=== PATIENT | female | born 1935 | race Caucasian/White ===

== ENCOUNTER 2017-12-19 15:51 | Inpatient (IN) | payer MEDICARE, OTHER ==
[~2017-12-19] VITALS: Ht 167.6 cm; Wt 50.8 kg
[~2017-12-19 15:51] MED LIST: LORA-447 PO; QUET25TA5 PO; RISP0.2518 PO; SERT50TA PO
[2017-12-19 19:00] VITALS: BP 143/65
--- NOTE | 2017-12-19 19:00 | NUR ---
ADMISSION Pt arrived to [facility] unit per [facility] style wheelchair with sister Ailyn Preston and her son and 2 nursing workers from [facility] who transported here her from [facility]. Patient awake alert unable to give information other than her name and Month she was born and year. Pt cooperative at this time. Sister of pt helped complete admission.
[2017-12-19] MEDS ORDERED: RISPERDAL ONE (19:32)
[2017-12-19] MEDS ORDERED: HALDOL PO PRN (20:00)
[2017-12-19] MEDS ORDERED: HALDOL IM PRN (20:00)
[2017-12-19] MEDS ORDERED: ATIVAN PO PRN (20:00)
[2017-12-19] MEDS ORDERED: ATIVAN IM PRN (20:00)
[2017-12-19] MEDS ORDERED: RISPERDAL PO SCH (21:00)
--- NOTE | 2017-12-19 21:43 | NUR ---
Medication pt refused medication after several attempts becomes aggressive when nurses attempt to assist her with ADL's or any care RN attempted also will cont to monitor pt's behavior
--- NOTE | 2017-12-19 23:49 | NUR ---
VSEE Patient seen by Dr Zazueta per VSEE. Pts family also spoke with DR Zazueta about pt and her admission criteria. Admission meds added by Dr Zazueta.
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
--- NOTE | 2017-12-20 05:41 | NUR ---
Admit information Patient from [facility] in [place], [place], Patients sister reports patients may come see patient and she feels that it will upset the patient. [facility] at [facility]. Patient [facility] from [facility] with her in room. Patients sleep pattern varies. She normally has a good appetite and needs meds crushed in her food or she hasnt been taking them. She is unable to stand alone and may need 2 person assist for transfer. Patient has been wheelchair bound since she broke her hip 6 to 7 months ago. Patient had fell about 6 weeks after leaving [facility] last time and broke her hip. Patient has laceration/Skin teat to left arm which has been [facility] striped by [facility]. no infection noted. Patient enjoys cheese crackers and Dr Buchanan . Information obtained from Patients sister. Patient unable to answer questions so patient sister gave information provided.
[2017-12-20] MEDS ORDERED: LORA10TA75 PO (06:14)
[2017-12-20] MEDS ORDERED: GUAI-59 PO (06:17)
[2017-12-20] MEDS ORDERED: ACET325T12 PO (06:18)
[2017-12-20] MEDS ORDERED: ACET-685 PO (06:20)
[2017-12-20 07:08] VITALS: BP 146/95
[2017-12-20] MEDS ORDERED: ZOLOFT ONE (07:48)
[2017-12-20] MEDS ORDERED: RISPERDAL ONE ×2 (07:48→17:45)
[2017-12-20] MEDS ORDERED: RISPERDAL PO SCH ×2 (08:30→09:00)
[2017-12-20] MEDS: ZOLOFT PO SCH (09:50)
--- NOTE | 2017-12-20 12:20 | PRM.PN ---
Mood: UP AND DOWN, VERY CONFUSED Sleep: SLEPT 5.25 HOURS LAST NIGHT Appetite: SHE ATE 50% OF HER BREAKFAST THIS MORNING, TOTAL ASSIST Suidical thoughts: NONE REPORTED Homicidal thoughts: NONE REPORTED Recent stressors: STRESS OF MENTAL ILLNESS AND CONFUSION Family support: SISTER Aggressive Behavior: SHE HAS HAD RECENT AGGRESSIVE BEHAVIOR Ability to Perform ADL'sc: NEEDS ASSISTANCE (2 PERSON ASSIST) Psychotic sympstoms: DELUSIONAL THINKING, ODD THINKING, HALLUCINATIONS Manic Symptoms: MOOD SWINGS Living situation: LIVES AT PRISON IN [place], [place] Illicit Drug usec: NONE REPORTED Alcoholo use: NONE REPORTED Tobacco use: NONE REPORTED Family,PT,Surgical,&Current HX: Anxity Symptoms: MODERATE ANXIETY LEVEL Anger/Irritablility: PROBLEMS WITH ANGER AND IRRITABILITY Muscle Strength & Tone: WNL Gait & Station: Ataxic Appearance: Well groomed/hygience, Casual attire, Normal weight, Appears age stated Attitude & Behaviour: Uncooperative, Poor eye contact, Psychomotor agitation Mood & Affect: Euthymic/appr/congruent, Iabile, Angry Orientation: Disoriented to person, Disoriented to place, Disoriented to time, Disoriented to situation Attention/Concentration: Poor attention, Poor concentration Speech: Impaired Judgement/Insight: Poor judgement, Poor insight Thought Process: Loose, Tangential Language: Citizen [place] Thought content/Abnormal/Psych: A/V Corea, Delusions Fund of Knowledge: Other Associations: GUIDO Memory (recent and remote): Recent memory repaired, Remote memory repaired Constitutional: None Neurological: Weakness Psychiatric: Depressed, Anxious, Psychosis [place] I: DELUSIONAL DISORDER, PSYCHOSIS, DEPRESSION, ANXIETY, DEMENTIA [place] II: DEFERRED [place] III: REFER TO PMH/MEDICAL CHART [place] IV: STRESS OF MENTAL ILLNESS [place] V: GAF=25 Assessment/Plan Assessment/Plan Assessment/Plan THE PATIENT WAS SEEN BY DR. SCHWAB VIA TELEMEDICINE EQUIPMENT (VSEE) ALONG WITH THE TREATMENT TEAM. THE PATIENT'S VITAL SIGNS WERE: DM=935/95, PULSE=82, RESP.= 20, O2 SAT WAS 92% ON RA, TEMP.=98.0. THE PATIENT SLEPT 5.25 HOURS LAST NIGHT. THE PATIENT HAS A NORMAL APPETITE. THE PATIENT WAS ADMITTED TO THE [facility] YESTERDAY FOR AGGRESSIVE BEHAVIOR AT THE PRISON IN [place]. SHE HAS A SISTER THAT IS SUPPORTIVE. THE PATIENT MUMBLES AND DOES NOT ANSWER QUESTIONS VERY WELL. SHE IS DISORIENTED TO PERSON, PLACE, TIME, AND SITUATION. THE PATIENT IS NOT ABLE TO STATE HER MOOD. THE PATIENT HAS ODD AND DELUSIONAL THINKING RELATED TO HER DEMENTIA. THE PATIENT HAS HAD AGGRESSIVE BEHAVIOR RECENTLY. THE PATIENT IS NOT OVER-SEDATED FROM HER MEDICATIONS. SHE HAS DONE WELL ON RISPERDAL IN THE PAST PER HER SISTER. THE PATIENT IS A FULL ASSIST ON HER ADLS. ASSESSMENT: DELUSIONAL DISORDER, PSYCHOSIS; MAJOR DEPRESSIVE DISORDER; GENERALIZED ANXIETY DISORDER; DEMENTIA WITH BEHAVIOR PROBLEMS PLAN: 1) CONTINUE [facility] [place] MANAGEMENT. 2) INCREASE RISPERDAL TO 1MG PO BID. CONTINUE OTHER MEDICATIONS AT CURRENT DOSES. STAFF AGREEABLE WITH THE PLAN. SUPPORTIVE THERAPY GIVEN. THE PATIENT IS NOT SUICIDAL OR HOMICIDAL. Problems: (1) Psychosis Status: Acute ICD Code: F29 - Unspecified psychosis not due to a substance or known physiological condition SNOMED: 63870885 (2) Delusional disorder Status: Acute ICD Code: F22 - Delusional disorders SNOMED: 69482712 (3) Dementia with behavioral disturbance Permanent Comment: Treat as per psych Last Edited By: Ramiro Juárez MD on Feb 21, 2017 20:07 Status: Acute ICD Code: F03.91 - Unspecified dementia with behavioral disturbance SNOMED: 6926319091250 Patient History: MAINE SCHWAB IV, MD Dec 20, 2017 12:20
--- NOTE | 2017-12-20 12:43 | NUR ---
LUNCH PT CAME OUT OF SEEING DR SCHWAB YELLING AND SCREAMING. WHEN ATTEMPT TO GIVE HER TRAY TO HER SHE CONTINUE TO YELL AND SCREAM AT STAFF. STAFF SAT AT TABLE WITH OTHER PTS AND THIS PT. FEEDING THE OTHER PTS. WHILE AT THE TABLE PT KEPT YELLING-STAFF DID NOT TALK TO PT DUE TO HER YELLING IF SPOKE TO. PT DID CLAM DOWN AND LOOKED AT PEER NEXT TO HER AND APOLOGIZE. PT JUST SAT AT TABLE. Addendum: 12/20/17 at 1319 by Bette English LVN - GP TURRET LATHE SET UP OPERATOR Amended: Links added.
--- NOTE | 2017-12-20 13:20 | NUR ---
LUNCH CAME BACK TO PT AFTER SHE CALMED DOWN AND WAS SITTING QUIETLY ASKED IF SHE WAS HUNGRY. HER ANSWER MADE NO SENSE. PT ATE 50% ASSISTED BY THIS STAFF MEMBER. PT ATE WITHOUT ANY DIFFICULTY. DID SAY WHEN SHE WAS FULL.
--- NOTE | 2017-12-20 14:00 | NUR ---
GMAS: 0 PT UNABLE TO COGNITIVELY PARTICIPATE IN ASSESSMENT. PT INVOLUNTARY. PT CURRENTLY YELLING OUT. Addendum: 12/21/17 at 0842 by Hanna Knight, DISHA, BILLING COORDINATOR SW Amended: Links added.
--- NOTE | 2017-12-20 14:00 | NUR ---
MMSE: 030 PT UNABLE TO COGNITIVELY PARTICIPATE IN ASSESSMENT. PT INVOLUNTARY AND AGITATED. Addendum: 12/21/17 at 0844 by Hanna Knight, DISHA, AUTO MECHANICS TEACHER SW Amended: Links added.
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
--- NOTE | 2017-12-20 16:20 | NUR ---
PIRP: P: DTO, DEMENTIA WITH BEHAVIOR DISTURBANCE, FALL RISK. I: Provide medications as ordered by physician, Encourage attendance and participation of all groups, Provide groups that require focus and concentration. Provide 1:1 for allowing patient to voice feelings and concerns. Provide nonskid socks and assist patient with transfers and place bed alarm on patients bed. R: Patient has taken all medications but requires them to be crushed. Patient has been present for groups but has limited participation in groups d/t patient unable to express needs / feelings d/t word salad. She has raised her voice at staff as if getting upset but has not been able to make needs known. Patient is wearing nonskid socks, bed alarm placed and staff is assiting with transfers and toileting. P: Continue with current plan of care. Patient was seen by Dr. Zazueta today.
[2017-12-20 19:22] VITALS: BP 150/77
[2017-12-20] MEDS: RISPERDAL PO SCH (20:15)
[2017-12-21] MEDS ORDERED: TYLENOL PO PRN (00:30)
[2017-12-21] MEDS: ROBITUSSIN PO SCH ×6 (04:00→20:25)
--- NOTE | 2017-12-21 04:08 | NUR ---
PIRP P Behavioral Health Danger to Others, Dementia with Behavioral disturbance, High fall risk I Patient to be encourage to sleep at least 7 hours. Medication compliance to be enforced to help patient get to baseline so she can return to nursing facility. Threatening behavior to be stopped immediately for safety of other patients. Observations of Patient every 15 minutes to promote safety of patient and other patients. Allow patient to verbalize thoughts as she can. Observe for changes in patients behavior. R Patient has slept at least 6 hours this pm. Patients meds have been crushed as to help patient take them. Patient has not displayed any threatening behavior this pm. Patient observed for safety and has not tried to get up out of bed during the night. Patient has not been able to carry out conversations due to mental cognition. Patient behavior has not changed. Patient has hollered out several times during the night. P Continue plan of care.
[2017-12-21] MEDS ORDERED: CLARITIN ONE (06:31)
[2017-12-21 08:08] VITALS: BP 138/73
[2017-12-21] MEDS: ZOLOFT PO SCH (08:38)
[2017-12-21] MEDS: RISPERDAL PO SCH ×2 (08:38→20:24)
[2017-12-21] MEDS: CLARITIN PO SCH (08:38)
--- NOTE | 2017-12-21 15:01 | NUR ---
PIRP: P: DTO, ALTERED THOUGHT PROCESS. I: Provide medications as ordered by physician. Encourage attendance and participation of all groups. Provide groups that require focus and concentration. Provide 1:1 allowing patient to voice concerns and feelings. Assist patient in differentiating between internal and external reality. Provide patient with nonskid socks and assist with transfers and ambulation. R: Patient has taken all medications as ordered and has attended in all groups. She has not yelled out as much and at times has smiled. She continues to ramble with inappropriate word choice and is unable to effectively make needs known. Patient has not been hallucinating and has not been aggressive or combative. P: Continue with current plan of care.
[2017-12-21 19:15] VITALS: BP 99/75
--- NOTE | 2017-12-21 20:56 | NUR ---
medications Patient refused robitussin this HS, RN notified
--- NOTE | 2017-12-22 03:40 | NUR ---
PIRP P: Dementia with behavioral disturbance,DTO, Risk for falls. I: Provide medications as ordered by Dr. Assist patient in differentiating between internal and external reality. Encourage attendance and participation of all groups. Provide 1:1 to allow patient to voice concerns and feelings. Monitor q 15 mins for safety and fall prevention compliance. R: Patient took all Hs medications this shift, also had a snack and watched some of the [employer] tv show. Patient unable to answer questions and is hard to understand what she is saying. Patient has not been combative or aggressive this shift. Patient has yellow socks on, and bed alarm on and working. Patient has slept well this shift, after moving her to brayan-chair and out of her bed. P: Continue current plan of care.
[2017-12-22] MEDS: ROBITUSSIN PO SCH ×5 (04:00→16:30)
[2017-12-22 10:50] VITALS: BP 135/53
[2017-12-22] MEDS: ZOLOFT PO SCH (10:54)
[2017-12-22] MEDS: RISPERDAL PO SCH ×2 (10:55→20:21)
[2017-12-22] MEDS: CLARITIN PO SCH (10:55)
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
[2017-12-22] MEDS ORDERED: ROBITUSSIN DM PO PRN (19:30)
--- NOTE | 2017-12-23 05:19 | NUR ---
PIRP P: Dementia with behavioral disturbance,DTO, Risk for falls. I: Provide medications as ordered by Dr. Assist patient in differentiating between internal and external reality. Encourage attendance and participation of all groups. Provide 1:1 to allow patient to voice concerns and feelings. Monitor q 15 mins for safety and fall prevention compliance. R: Patient took all Hs medications this shift, also had a snack and watched some of [employer] show. Patient also colored on paper with a little assistance from staff. Patient has not been combative or aggressive this shift. Patient has yellow socks on, and bed alarm on and working. Patient has slept well this shift. P: Continue current plan of care.
[2017-12-23] MEDS: ZOLOFT PO SCH (09:24)
[2017-12-23] MEDS: RISPERDAL PO SCH ×2 (09:25→20:09)
[2017-12-23] MEDS: TYLENOL #3 PO PRN (09:25)
[2017-12-23] MEDS: CLARITIN PO SCH (09:25)
[2017-12-23 09:29] VITALS: BP 122/72
--- NOTE | 2017-12-23 10:39 | PRM.PN ---
Mood: UP AND DOWN, DIFFICULT TIME DESCRIBING HER MOOD Sleep: SLEEPING WELL AT NIGHT Appetite: EATING OK, TRIES TO EAT MOST OF HER PLATE, HAS TO BE FED BY STAFF Suidical thoughts: NONE REPORTED Homicidal thoughts: NONE REPORTED Recent stressors: STRESS OF MENTAL ILLNESS, POOR MEMORY Family support: SISTER Aggressive Behavior: NONE REPORTED THIS WEEKEND Ability to Perform ADL'sc: NEEDS ASSISTANCE Psychotic sympstoms: DELUSIONAL AND ODD THINKING Manic Symptoms: NONE REPORTED Living situation: LIVES AT [facility] IN [place], [place] Illicit Drug usec: NONE REPORTED Alcoholo use: NONE REPORTED Tobacco use: NONE REPORTED Family,PT,Surgical,&Current HX: Anxity Symptoms: MODERATE ANXIETY LEVEL Anger/Irritablility: SOME ANGER AND IRRITABILITY Muscle Strength & Tone: WNL Gait & Station: Ataxic Appearance: Appears older, Well groomed/hygience, Casual attire, Normal weight Attitude & Behaviour: Uncooperative, Poor eye contact, Psychomotor agitation Mood & Affect: Euthymic/appr/congruent, Iabile, Blunted Orientation: Disoriented to person, Disoriented to place, Disoriented to time, Disoriented to situation Attention/Concentration: Poor attention, Poor concentration Speech: Impaired Judgement/Insight: Poor judgement, Poor insight Thought Process: Loose, Tangential Language: [place] Thought content/Abnormal/Psych: Delusions Fund of Knowledge: Other Associations: GUIDO Memory (recent and remote): Recent memory repaired, Remote memory repaired Constitutional: None Neurological: Weakness Psychiatric: Depressed, Anxious, Psychosis [place] I: DEMENTIA WITH BEHAVIOR, DEPRESSION, DELUSIONAL DISORDER, ANXIETY [place] II: DEFERRED [place] III: REFER TO PMH/MEDICAL CHART [place] IV: STRESS OF MENTAL ILLNESS [place] V: GAF=25 Assessment/Plan Assessment/Plan Assessment/Plan THE PATIENT WAS SEEN BY DR. SCHWAB VIA TELEMEDICINE EQUIPMENT (VSEE) ALONG WITH NURSING STAFF. THE PATIENT'S VITAL SIGNS WERE: PT=591/65, PULSE=71, TEMP.=97.7, RESP.=18, O2 SAT WAS 91% ON RA. THE PATIENT RECEIVED TYLENOL #3 THIS MORNING FOR HIP PAIN. THE PATIENT HAS SUPPORT FROM HER SISTER. THE PATIENT IS LIVING AT [facility] IN [place], [place]. THE PATIENT SLEPT 8 HOURS LAST NIGHT. THE PATIENT HAS A NORMAL APPETITE. SHE TRIES TO EAT MOST OF HER MEALS. THE PATIENT STRUGGLES WITH CONFUSION. SHE IS NOT ABLE TO ANSWER QUESTIONS VERY WELL. SHE DOES NOT VOICE SI OR HI. THE PATIENT HAS ODD AND DELUSIONAL THINKING RELATED TO HER DEMENTIA. THE PATIENT IS REPORTEDLY TAKING HER MEDICATIONS. THE PATIENT MUMBLES AND SHE IS DIFFICULT TO UNDERSTAND. ASSESSMENT: DELUSIONAL DISORDER; PSYCHOSIS; DEMENTIA WITH BEHAVIOR PROBLEMS; MAJOR DEPRESSIVE DISORDER; GENERALIZED ANXIETY DISORDER PLAN: 1) CONTINUE BEHAVIORAL HEALTH MANAGEMENT. 2) CONTINUE CURRENT MEDICATIONS. THE PATIENT IS NOT OVER-SEDATED FROM HER MEDICATIONS. SUPPORTIVE THERAPY GIVEN. THE PATIENT DOES NOT VOICE SI OR HI. Problems: (1) Delusional disorder Status: Acute ICD Code: F22 - Delusional disorders SNOMED: [id number] (2) Psychosis Status: Acute ICD Code: F29 - Unspecified psychosis not due to a substance or known physiological condition SNOMED: [id number] (3) Dementia with behavioral disturbance Permanent Comment: Treat as per psych Last Edited By: Ramiro Juárez MD on Feb 21, 2017 20:07 Status: Acute ICD Code: F03.91 - Unspecified dementia with behavioral disturbance SNOMED: [id number] Patient History: MAINE SCHWAB IV, MD Dec 23, 2017 10:38
--- NOTE | 2017-12-23 17:11 | NUR ---
PIRP P Danger to others, Dementia with behavioral disturbance, High fall risk I Monitor patient every 15 minutes to observe for threatening or assaultive behavior. Patient to be medication compliant. Encourage patient to eat a well balanced meal. Encourage patient to sleep 8 hours each night. R Patient has been monitored every 15 minutes and has been cooperative with care. Patient has not displayed any negative behavior today. Patient takes medications crushed but is compliant with taking them. Patient has ate well today with assist of being fed. Patient slept 8 hours last night . No change in orders per Dr Zazueta during VSEE today. P Continue plan of care.
[2017-12-23 19:45] VITALS: BP 145/65
--- NOTE | 2017-12-24 05:36 | NUR ---
PIRP P: Dementia with behavioral disturbance,DTO, Risk for falls. I: Provide medications as ordered by Dr. Assist patient in differentiating between internal and external reality. Encourage attendance and participation of all groups. Provide 1:1 to allow patient to voice concerns and feelings. Monitor q 15 mins for safety and fall prevention compliance. R: Patient did not take all Hs medications this shift, nurse tried to mix in ice cream and in boost and still patient only took some of the medication. Patient yelling and singing through group, patient has been combative and aggressive when staff gives her care. Patient has yellow socks on, and bed alarm on and working. Patient has slept well the end of the shift. P: Continue current plan of care.
[2017-12-24 07:07] VITALS: BP 118/69
[2017-12-24] MEDS: CLARITIN PO SCH (09:39)
[2017-12-24] MEDS: ZOLOFT PO SCH (09:40)
[2017-12-24] MEDS: RISPERDAL PO SCH ×2 (09:40→20:11)
--- NOTE | 2017-12-24 10:46 | NUR ---
PIRP: P: ALTERED THOUGHT PROCESS, ALTERED MENTAL STATUS. I: Provide medications as ordered by physician. Encourage attendance and participation of all groups. Provide groups that require focus and concentration. Assist patient in differentiating between internal and external reality. R: Patient has taken all medications as ordered and has attended groups . Participation in groups is minimal d/t word salad and unable to make needs known. Patient has yelled out during shower but has not been combative with staff. She has smiled and has been pleasant and cooperative. She has not been seen hallucinating this morning. P: Continue current plan of care. Addendum: 12/24/17 at 1724 by Bea Daugherty RN - VICK MARTIN correction to my note. Patient spit a majority of her medications out this morning that were crushed and mixed with pudding . It is undetermined on how much medication she received.
[2017-12-24] MEDS: TYLENOL #3 PO PRN (13:56)
[2017-12-24 17:50] VITALS: BP 152/71
[2017-12-24 20:00] VITALS: BP 128/59
--- NOTE | 2017-12-25 05:15 | NUR ---
PIRP- P- RISK FOR FALLS, BEHAVIORAL DISTURBANCE, DTO I- PROVIDE SAFE AND SUPPORTIVE ENVIRONMENT,PROVIDE MEDICATION ORDERED, Q 15 MIN. MONITORING. R- PT. SAT IN DAY ROOM IN W/C ,RAMBLING ,ORIENTED TO NAME WHEN ASKED IF HER NAME WAS RENE. PT. WAS OFFERED AND ENCOURAGED TO TAKE MEDICATION SEVERAL TIMES BUT ONLY TOOK A BITE. PT. DID NOT EAT A SNACK OR DRINK ANYTHING BUT ENCOURAGEMENT WAS PROVIDED . PT. WAS ASSISTED WITH TRANSFER AND HS CARE . PT. WAS AGGRESSIVE WITH HS ADLS. REQUIRES REDIRECTING. AFTER PT. WENT TO BED SHE CONT. ATTEMPTED TO GET UP AND REQUIRED REDIRECTING FREQUENTLY. PT. HAS YELLOW NON SKID SOCKS ON, AND BED ALARM IN USE.HAS RESTED IN BED WITH EYES CLOSED FOR 3.25 HOURS OF THIS TIME. P- WILL CONTINUE WITH CURRENT TX. PLAN.
[2017-12-25 07:10] VITALS: BP 105/60
[2017-12-25] MEDS: ZOLOFT PO SCH (09:29)
[2017-12-25] MEDS: RISPERDAL PO SCH ×2 (09:29→21:12)
[2017-12-25] MEDS: CLARITIN PO SCH (09:29)
--- NOTE | 2017-12-25 11:46 | CNH ---
DATE OF CONSULTATION: 12/20/2017 CONSULT/HISTORY AND PHYSICAL. REFERRING PHYSICIAN: Dr. Zazueta with Psychiatry. REASON FOR CONSULTATION: Medical management of multiple medical problems. HISTORY OF PRESENT ILLNESS: The patient is an 82-year-old woman with a past medical history significant for apparently some level of chronic kidney disease, although current labs are not available. She was admitted to [facility] inpatient psychiatric care reportedly for aggressive and irritable behavior. She has a history of Alzheimer dementia. PAST MEDICAL HISTORY: Includes seasonal allergies and Alzheimer type dementia. PAST SURGICAL HISTORY: She has had a hip fracture in the past, reportedly had surgical repair. ALLERGIES: ALLERGIC TO ASPIRIN. HOME MEDICATIONS: List includes loratadine 10 mg daily, guaifenesin as needed for cough, Tylenol with codeine as needed for pain, Tylenol is also written as 325 mg every 4 hours for pain also. SOCIAL HISTORY: No reported alcohol, tobacco or illicit drug use history. FAMILY HISTORY: Unknown and unreliable at this time. REVIEW OF SYSTEMS: CARDIAC: She denies chest pain or shortness of breath. PULMONARY: No cough, sputum production or pleuritic chest pain. GASTROINTESTINAL: No nausea, vomiting, diarrhea or constipation. All else negative in 10 point review of system except as in HPI. PHYSICAL EXAMINATION: INITIAL VITAL SIGNS: At time of exam, height 167.6 cm, weight 50.8 kg, BMI of 18.1, temperature 98.0, pulse 72, respiratory rate is 20, blood pressure 146/95 and O2 saturation 92% on room air. GENERAL: She is alert at time of exam, chronic ill-appearing lady. HEENT: Pupils equal, round, reactive to light. Sclerae are anicteric. Oropharynx is clear. Mucous membranes are moist. NECK: Supple, no lymphadenopathy. CARDIOVASCULAR: At time of exam was regular rate and rhythm. LUNGS: Clear bilaterally with shallow inspiratory effort. ABDOMEN: Soft. Bowel sounds are present, nontender to palpation. EXTREMITIES: No cyanosis, clubbing or significant edema. LABORATORY DATA: Her LDL is 159, HDL 36 and hemoglobin A1c 6.1. ASSESSMENT AND PLAN: The patient is an 82-year-old woman here with Alzheimer dementia with aggressive behavior with seasonal allergies. 1. We will continue her Claritin and Tylenol as needed. 2. Appropriate p.r.n. pain and nausea medication. Thank you very much for this consult. We will follow with you. This lady has very few chronic medical problems, but we will continue to follow and treat as need arises. Andrea Corea MD DR: GEOVANNI/robert JOB# [id number]
--- NOTE | 2017-12-25 18:32 | NUR ---
PIRP P: DTO, dementia with behavioral disturbance, fall-risk I: q15 min monitoring, provide safe and supportive environment, redirect with verbalization, give clear and simple instructions, re-orient to surroundings, give medications as ordered, implement fall prevention techniques, reinforce unit rules, provide positive feedback with appropriate behaviors, teach medication compliance R: Pt has had irritable affect throughout shift. Yells out with ADLs, difficult to redirect with verbalization. Unable to answer assessment questions appropriately. Has been in and out of sleep throughout shift, has poor appetite. Was compliant with medical staff manager if medications crushed, otherwise defiant. Requires 1:1 redirection @ times. P: Pt unable to voice plan.
[2017-12-25 19:04] VITALS: BP 100/64
--- NOTE | 2017-12-26 06:06 | NUR ---
PIRP-' P- RISK FOR FALLS ,BEHAVIORAL DISTURBANCE AND DTO I- PROVIDE SAFE AND SUPPORTIVE ENVIRONMENT,PROVIDE MEDICATION ORDERED,GIVE SIMPLE AND CLEAR DIRECTIONS,Q 15 MIN. MONITORING. ASSIST WITH ADLS. R- PT. WAS ATTEMPTING TO HIT WITH VS AND ADL ASSISTANCE TONIGHT. ORIENTED TO NAME NOT YEAR OR MONTH. PT. DID NOT SAY HER NAME BUT ANSWERED TO RENE. SHE ATTENDED GROUP BUT DID NOT PARTICIPATE . SHE SAT IN CHAIR WITH EYES CLOSED MOST OF THE GROUP. TOOK MEDICATION ORDERED. REMAINS FALL RISK AND REQUIRES ASSISTANCE WITH TRANSFER AND ADLS. PT.DID NOT EAT A SNACK OR DRINK IN GROUP. PT. DID NOT INITIATE INTERACTION. NO DELUSIONS NOTED. P- WILL CONTINUE WITH CURRENT TX. PLAN AND WILL CONTINUE TO ENCOURAGE FLUIDS AND SNACKS.
[2017-12-26 08:35] VITALS: BP 126/64
[2017-12-26] MEDS: RISPERDAL PO SCH ×4 (09:00→21:03)
[2017-12-26] MEDS: CLARITIN PO SCH ×2 (09:00→09:11)
[2017-12-26] MEDS: ZOLOFT PO SCH ×2 (09:00→09:11)
--- NOTE | 2017-12-26 09:25 | NUR ---
Tx team Pt was seen by Dr. Zazueta and tx team, no new orders received @ this time.
--- NOTE | 2017-12-26 09:33 | PRM.PN ---
Mood: UP AND DOWN, NOT ABLE TO DESCRIBE HER MOOD VERY WELL Sleep: SLEPT WELL LAST NIGHT, HER SLEEP HAS IMPROVED Appetite: UP AND DOWN Suidical thoughts: NONE REPORTED Homicidal thoughts: NONE REPORTED Recent stressors: STRESS OF MENTAL ILLNESS Family support: SISTER Aggressive Behavior: AGGRESSIVE TO STAFF WHEN THEY ARE TRYING TO HELP WITH HER ADLS Ability to Perform ADL'sc: FULL ASSIST Psychotic sympstoms: DELUSIONAL AND ODD THINKING, PARANOIA, HALLUCINATIONS Manic Symptoms: NONE REPORTED Living situation: LIVES AT [facility] Illicit Drug usec: NONE REPORTED Alcoholo use: NONE REPORTED Tobacco use: NONE REPORTED Family,PT,Surgical,&Current HX: Anxity Symptoms: MODERATE ANXIETY LEVEL Anger/Irritablility: SOME ANGER AND IRRITABILITY Muscle Strength & Tone: WNL Gait & Station: Ataxic Appearance: Appears older, Casual attire, Underweight Attitude & Behaviour: Uncooperative, Poor eye contact, Psychomotor agitation Mood & Affect: Euthymic/appr/congruent, Iabile, Angry, Depressed Orientation: Disoriented to person, Disoriented to place, Disoriented to time, Disoriented to situation Attention/Concentration: Poor attention, Poor concentration Speech: Impaired Judgement/Insight: Poor judgement, Poor insight Thought Process: Loose, Tangential Language: [place] Thought content/Abnormal/Psych: A/V Corea, Delusions Fund of Knowledge: Other Associations: GUIDO Memory (recent and remote): Recent memory repaired, Remote memory repaired Constitutional: None Neurological: Weakness Psychiatric: Depressed, Anxious, Psychosis [place] I: DELUSIONAL DISORDER; PSYCHOSIS; DEMENTIA WITH BEHAVIOR PROBELMS, ANXIETY [place] II: DEFERRED [place] III: REFER TO PMH/MEDICAL CHART [place] IV: STRESS OF MENTAL ILLNESS [place] V: GAF=25 Assessment/Plan Assessment/Plan Assessment/Plan THE PATIENT WAS SEEN BY DR. SCHWAB FACE TO FACE ALONG WITH THE TREATMENT TEAM. THE PATIENT'S VITAL SIGNS WERE: TEMP.=97.6, PULSE=84, RESP.=18, KV=609/64, O2 SAT WAS 94% ON RA. THE PATIENT SLEPT 9.25 HOURS LAST NIGHT. THE PATIENT'S APPETITE IS UP AND DOWN. THE PATIENT IS TOTAL ASSIST ON HER ADLS. THE PATIENT HAS PROBLEMS WITH BEING COMBATIVE. THE PATIENT DOES NOT LIKE GETTING HELP WITH ADLS. SHE HAS PROBLEMS WITH YELLING AND SCREAMING. THE PATIENT IS VERY CONFUSED. SHE IS NOT ABLE TO ANSWER QUESTIONS VERY WELL. SHE IS DISORIENTED TO PERSONA, PLACE, TIME, AND SITUATION. THE PATIENT HAS ODD AND DELUSIONAL THINKING. THE PATIENT HAS PARANOIA. ASSESSMENT: DELUSIONAL DISORDER; PSYCHOSIS; MAJOR DEPRESSIVE DISORDER; GENERALIZED ANXIETY DISORDER; DEMENTIA WITH BEHAVIOR PROBLEMS PLAN: 1) CONTINUE BEHAVIORAL HEALTH UNIT MANAGEMENT. 2) CONTINUE CURRENT MEDICATIONS. STAFF AGREEABLE WITH THE PLAN. SUPPORTIVE THERAPY GIVEN. THE PATIENT DENIES SI OR HI. SAFETY PLANS WERE DISCUSSED. Problems: (1) Delusional disorder Status: Acute ICD Code: F22 - Delusional disorders SNOMED: 12395267 (2) Psychosis Status: Acute ICD Code: F29 - Unspecified psychosis not due to a substance or known physiological condition SNOMED: 80806671 (3) Dementia with behavioral disturbance Permanent Comment: Treat as per psych Last Edited By: Ramiro Juárez MD on Feb 21, 2017 20:07 Status: Acute ICD Code: F03.91 - Unspecified dementia with behavioral disturbance SNOMED: 3158789884248 Patient History: MAINE SCHWAB IV, MD Dec 26, 2017 09:33
--- NOTE | 2017-12-26 11:06 | NUR ---
Medication refusal Patient refused all medication this AM. Several attempts made to administer medications, Patient refused medications each time. Patient swatting at staff with attempt. Medications wasted.
[2017-12-26 16:50] VITALS: BP 125/70
--- NOTE | 2017-12-26 18:32 | NUR ---
INGRID P: DTO, dementia with behavioral disturbance, fall-risk I: Assess for psychotic symptoms, q15 min monitoring, provide safe and supportive environment, assist with differentiating between internal and external reality, redirect with verbalization, give clear and simple instructions, re-orient to surroundings, give medications as ordered, implement fall prevention techniques, reinforce unit rules, provide positive feedback with appropriate behaviors, teach medication compliance, provide task-oriented activities, provide 1:1 to encourage expression of feelings R: Pt has had flat, withdrawn affect majority of shift. Unable to answer assessment questions appropriately, has difficulty following simple commands. Toward end of shift, pt began yelling in day room, was unable to console and was placed in chatterjee with charge nurse. Pt yelled out, but eventually calmed down and was taken back to day room where she has been irritable @ times. Pt refused her medications this shift, was unable to be redirected. Is uncooperative with ADLs. P: Pt was seen by Dr. Zazueta, no new orders @ this time.
--- NOTE | 2017-12-27 05:33 | NUR ---
PIRP P: Dementia with behavioral disturbance,DTO, Risk for falls. I: Provide medications as ordered by Dr. Assist patient in differentiating between internal and external reality. Encourage attendance and participation of all groups. Provide 1:1 to allow patient to voice concerns and feelings. Monitor q 15 mins for safety and fall prevention compliance. R: Patient did not take her Hs medications this shift, nurse tried several times and with different staff members. Patient has been combative and aggressive when staff gives her care. Patient has yellow socks on, and bed alarm on and working. Patient has slept well this shift, but when she wakes up through the night, she yells. P: Continue current plan of care.
[2017-12-27] MEDS: ZOLOFT PO SCH (10:20)
[2017-12-27] MEDS: CLARITIN PO SCH (10:20)
[2017-12-27] MEDS: RISPERDAL PO SCH (10:20)
[2017-12-27] MEDS: TYLENOL #3 PO PRN (11:03)
--- NOTE | 2017-12-27 11:39 | NUR ---
VSEE Pt was seen by Dr. Zazueta via telemed. Received orders to d/c risperdal and start pt on Zyprexa, see EMAR.
--- NOTE | 2017-12-27 11:39 | PRM.PN ---
Mood: UP AND DOWN, LABILE AFFECT, SUNDOWNING AT NIGHT Sleep: SLEPT 5.5 HOURS LAST NIGHT Appetite: NORMAL APPETITE Suidical thoughts: NONE REPORTED Homicidal thoughts: NONE REPORTED Recent stressors: STRESS OF MENTAL ILLNESS Family support: AND DAUGHTER Aggressive Behavior: PROBLEMS WITH AGGRESSIVE BEAHVIOR Ability to Perform ADL'sc: NEEDS ASSISTANCE Psychotic sympstoms: DELUSIONAL THINKING, PARANOIA, ODD THINKING Manic Symptoms: NONE REPORTED Living situation: LIVES AT [facility] Illicit Drug usec: NONE REPORTED Alcoholo use: NONE REPORTED Tobacco use: NONE REPORTED Family,PT,Surgical,&Current HX: Anxity Symptoms: MODERATE ANXIETY LEVEL Anger/Irritablility: PROBLEMS WITH ANGER AND IRRITABILITY Muscle Strength & Tone: WNL Gait & Station: Ataxic Appearance: Appears older, Well groomed/hygience, Casual attire, Underweight Attitude & Behaviour: Uncooperative, Poor eye contact, Psychomotor agitation Mood & Affect: Euthymic/appr/congruent, Iabile, Blunted, Angry, Depressed Orientation: Disoriented to person, Disoriented to place, Disoriented to time, Disoriented to situation Attention/Concentration: Poor attention, Poor concentration Speech: Impaired Judgement/Insight: Poor judgement, Poor insight Thought Process: Loose, Tangential Language: [place] Thought content/Abnormal/Psych: Delusions Fund of Knowledge: Other Associations: GUIDO Memory (recent and remote): Recent memory repaired, Remote memory repaired Constitutional: Insomnia Neurological: Weakness Psychiatric: Depressed, Anxious, Psychosis [place] I: DELUSIONAL DISORDER; PSYCHOSIS; DEPRESSION; ANXIETY, DEMENTIA [place] II: DEFERRED [place] III: REFER TO PMH/MEDICAL CHART [place] IV: STRESS OF MENTAL ILLNESS [place] V: GAF=25 Assessment/Plan Assessment/Plan Assessment/Plan THE PATIENT WAS SEEN BY DR. SCHWAB VIA TELEMEDICINE EQUIPMENT (VSEE) ALONG WITH THE TREATMENT TEAM. THE PATIENT'S VITAL SIGNS WERE: RL=781/70, PULSE=84, RESP.= 20, O2 SAT WAS 93% ON RA, TEMP.=98.6. THE PATIENT SLEPT 5.5 HOURS LAST NIGHT. THE PATIENT WOKE UP MULTIPLE TIMES LAST NIGHT. THE PATIENT IS A FULL ASSIST ON HER ADLS. THE PATIENT REFUSES HER MEDICATION A LOT. THE PATIENT CAN BE IRRITABLE AND AGGRESSIVE. THE PATIENT GETS UPSET WHEN STAFF TIRES TO HELP HER WITH ADLS. THE PATIENT HAS ODD AND DELUSIONAL THINKING. THE PATIENT HAS NOT BEEN SEEN HALLUCINATING. THE PATIENT DOES NOT ANSWER ANY QUESTIONS. SHE HAS HAD PROBLEMS WITH YELLING AND SCREAMING. ASSESSMENT: DELUSIONAL DISORDER; PSYCHOSIS; MAJOR DEPRESSIVE DISORDER; GENERALIZED ANXIETY DISORDER; DEMENTIA WITH BEHAVIOR PROBLEMS PLAN: 1) CONTINUE BEHAVIORAL HEALTH MANAGEMENT. 2) DISCONTINUE RISPERDAL. START ZYPREXA ZYDIS 5MG PO BID. CONTINUE OTHER CURRENT MEDICATIONS. THE PATIENT WAS ENCOURAGED TO TAKE HER MEDICATIONS. SUPPORTIVE THERAPY GIVEN. THE PATIENT DENIES SI OR HI. SAFETY PLANS WERE DISCUSSED. Problems: (1) Delusional disorder Status: Acute ICD Code: F22 - Delusional disorders SNOMED: 99306694 (2) Psychosis Status: Acute ICD Code: F29 - Unspecified psychosis not due to a substance or known physiological condition SNOMED: 84004685 (3) Dementia with behavioral disturbance Permanent Comment: Treat as per psych Last Edited By: Ramiro Juárez MD on Feb 21, 2017 20:07 Status: Acute ICD Code: F03.91 - Unspecified dementia with behavioral disturbance SNOMED: 8019092909713 Patient History: MAINE SCHWAB IV, MD Dec 27, 2017 11:39
[2017-12-27 11:42] VITALS: BP 124/70
--- NOTE | 2017-12-27 13:30 | NUR ---
ASSESSMENT COMPLETED CHARTED IN INTERVENTIONS. PT IN DAY ROOM, LETHARGIC. NON-VERBAL. RESPIRATIONS NON LABORED, 0 DISTRESS NOTED, PAIN 0 BEHAVIORAL.
--- NOTE | 2017-12-27 16:10 | NUR ---
PIRP P: DTO, dementia with behavioral disturbance, fall-risk I: Assess for psychotic symptoms, q15 min monitoring, provide safe and supportive environment, provide task-oriented activities, assist with differentiating between internal and external reality, monitor for changes in usual behavior, redirect with verbalization, give clear and simple instructions, re-orient to surroundings, give medications as ordered, implement fall prevention techniques, teach relaxation techniques, provide positive feedback with appropriate behaviors, teach medication compliance, provide 1:1 to encourage expression of feelings R: Pt has had flat, withdrawn affect majority of shift, irritable @ times. Unable to answer questions appropriately, does not participate in group activities. Unable to determine if pt is hallucinating or delusional. Difficult to redirect with verbalization, is uncooperative with ADLs. Pt yells out @ times, comfort measures effective. Has poor appetite, is total assist. Has been in and out of sleep in day room throughout shift, requires staff stimulation @ times to stay awake. Pt did take morning medications by having medicines crushed and put in cottage cheese. P: Pt was seen by Dr. Zazueta, started on Zyprexa, Risperdal discontinued.
[2017-12-27 16:45] VITALS: BP 126/84
[2017-12-27] MEDS ORDERED: ZYPREXA ZYDIS ONE (18:58)
[2017-12-27] MEDS: ZYPREXA ZYDIS SL SCH (21:00)
--- NOTE | 2017-12-27 21:48 | NUR ---
medications No adverse reactions noted to ID of Olanzapine this HS
--- NOTE | 2017-12-28 06:27 | NUR ---
PIRP P- Dementia with behavioral disturbances, DTO, High risk for falls. I- Monitor Q15 min. and provide safe and supportive environment. Provide 1:1 each shift allowing patient to express feelings and/or identify stressors. Educate patient to alternate coping mechanisms for anger/impulses/hostility and acting out. Encourage daily social service, activity therapy and nursing groups. Therapy and/or medications as per MD order, non-restraint cushions while in wheelchair or Gerichair. R- Slept the whole shift. Screamed for a short time while changing her brief. P- Will continue treatment plan.
[2017-12-28 07:00] VITALS: BP 143/75
--- NOTE | 2017-12-28 07:30 | NUR ---
O2 sat: Patient's Oxygen level was 86% on room air and she was mouth breathing. Oxygen applied at 2L/min while patient was sleeping. Patient's O2 sat monitored and came back up to 96%. Patient resting with eyes closed and respirations even and non labored.
[2017-12-28] MEDS: ZYPREXA ZYDIS SL SCH ×2 (09:14→21:00)
[2017-12-28] MEDS: ZOLOFT PO SCH (09:14)
[2017-12-28] MEDS: CLARITIN PO SCH (09:14)
[2017-12-28 13:00] VITALS: BP 136/72
--- NOTE | 2017-12-28 13:00 | NUR ---
Notified Dr. Otero: Notified Dr. Otero of patient physical decline. Patient has not eaten or drank anything today but has urinated x1. She has poor energy and her Oxygen level was dropping in to the low 80"s this morning. V/S BP 136/72, P92, R20, T99.[address] Otero is ordering labs.
[2017-12-28 13:44] LABS: BASOPHIL % 0.2 % (0.0-0.2); EOSINOPHIL % 0.1 % (0.0-5.0); HEMOGLOBIN 13.2 g/dL (12.0-15.0); LYMPHOCYTES % 8.8 % (24.0-44.0); MEAN CELL HGB 30.6 pg (26-34); MEAN CELL HGB CONCENTRATION 31.7 g/dL (33-37); MEAN CORP VOLUME 96.8 fL (78-100); MEAN PLATELET VOLUME 9.8 fL (7.8-11.0); MONOCYTES # 1.4 10^3/uL (0.3-0.8); NEUTROPHIL # 9.2 10^3/uL (1.8-7.7); NEUTROPHILS % 78.6 % (41.0-85.0); RED CELL DISTRIBUTION WIDTH 13.9 % (11.5-14.5); WHITE BLOOD CELL 11.7 10^3/uL (4.5-11.0)
[2017-12-28 13:54] LABS: CALCIUM 8.8 mg/dL (8.4-10.5); CARBON DIOXIDE 26.5 mmol/L (20.0-32)
--- NOTE | 2017-12-28 14:15 | NUR ---
DISCHARGE PLAN/FAMILY CONTACT: ZACKARY SPOKE TO FAMILY AND STAFF AT [facility] TO INFORM OF DR. SCHWAB'S RECOMMENDATION TO DISCHARGE ON HOSPICE BACK TO NURSING FACILITY. ZACKARY PROVIDED CORINA, SISTER WITH INFORMATION REGARDING HOSPICE FOR WHICH CORINA VERBALIZED UNDERSTANDING AND STATES THAT SHE NEEDS TO SEE FOR HERSELF BEFORE MAKING A DECISION. CORINA STATES SHE AND HER SISTER PLAN TO VISIT PATIENT TOMORROW AT 1430 AND WILL TALK WITH THE NURSE SO THAT THE NURSE CAN SHOW HER THE CHANGES THAT MAKES THE DR THINK SHE IS HOSPICE APPROPRIATE. SS TO FOLLOW. INFORMATION PROVIDED TO MARIO BRANHAM
--- NOTE | 2017-12-28 16:10 | DIREP ---
PROCEDURE:CHEST 1 VIEW COMPARISON:[facility], CR, XRAY CHEST SINGLE VW, 02/20/2017, 08:07 PM. INDICATIONS:sob FINDINGS: LUNGS/PLEURA:Senescent interstitial thickening throughout the bilateral hemithoraces is fairly similar to the previous study. No confluent airspace consolidation, sizeable pleural effusion or appreciable pneumothorax. VASCULATURE:Normal. Unremarkable pulmonary vasculature. CARDIAC:Normal. No cardiac silhouette abnormality or cardiomegaly. MEDIASTINUM:Mediastinal contours are within normal limits with calcifications of the aorta. BONES:Degenerative changes of the shoulders and spine. Degenerative changes are fairly advanced of the left shoulder with apparent intra-articular osteochondral bodies within the subcoracoid region. CONCLUSION: 1. Senescent changes without acute cardiopulmonary abnormality. Dictated by: Joe Corea M.D. On 12/28/2017 at 04:07 PM
--- NOTE | 2017-12-28 16:12 | NUR ---
PIRP: P: DTO. ALTERATION IN THOUGHT PROCESS. I: Provide medications as ordered by physician. Encourage attendance and participation of all groups. Assist patient in differentiating between internal and external reality. Observe patient for changes in behavior that may indicate increased risk of danger to others. R: Patient did swallow medications this morning crushed in jelly. Patient is unable to effectively participate in groups d/t mental status and is unable to make needs known d/t word salad. She continues to yell out when staff is delivering personal care. P: Continue current plan of care. Dr. Otero and Dr. Zazueta discussed patient.
--- NOTE | 2017-12-28 16:46 | PRM.PN ---
Subjective Subjective Date: Dec 28, 2017 Time: 16:25 Subjective Pt becoming less responsive to staff members and not taking po well at this point; her O2 sats dropped and is now on O2 Patient History: VTE VTE Risk Total Score: >5 VTE Risk Score VTE Risk: Score 0-1 = Low Risk (Aggressive mobilization; early ambulation; no VTE prophylaxis required) Score 2: Moderate Risk (Intermittent/Pneumatic Compression Device OR Lovenox/Heparin/Coumadin) Score 3-4: High Risk (Intermittent/Pneumatic Compression Device AND Lovenox/Heparin/Coumadin) Score > or =5: Highest Risk (Intermittent/Pneumatic Compression Device AND Lovenox/Heparin/Coumadin) Antico:Hep/LMWH/Coum/Xarelto: No Mechanical device ordered: No Review of Systems Constitutional: Other (not responding to me) Allergies: Coded Allergies: aspirin (Verified Allergy, Unknown, 02/20/17) Scheduled Guaifenesin (Sayda-Tussin), 10 MG PO Q4, (Reported) Loratadine (Claritin), 1 TAB PO DAILY, (Reported) Scheduled PRN Acetaminophen (Tylenol), 325 MG PO Q4 PRN for PAIN, (Reported) Acetaminophen With Codeine (Tylenol With Codeine #3 Tablet), 1 TAB PO Q6 PRN for PAIN 5 - 7, (Reported) Objective Vitals and I/O Vital Sign - Last 24 Hours 12/27/17 12/28/17 12/28/17 16:45 07:00 13:00 Temp 98.2 98.3 99.5 Pulse 70 90 92 Resp 18 20 20 B/P (MAP) 126/84 (98) 143/75 (97) 136/72 (93) Pulse Ox 98 86 88 O2 Delivery Room Air Room Air Intake and Output 12/27/17 12/27/17 12/28/17 15:00 23:00 07:00 Intake Total 342 ml Balance 342 ml General: No acute distress HEENT: Mucous membr. moist/pink Neck: Supple Lungs: Clear to auscultation, Normal air movement Heart: Normal S1, Normal S2 Abdomen: Normal bowel sounds, Soft Extremities: No clubbing, No cyanosis Medication Reconciliation Scheduled Guaifenesin (Sayda-Tussin), 10 MG PO Q4, (Reported) Loratadine (Claritin), 1 TAB PO DAILY, (Reported) Scheduled PRN Acetaminophen (Tylenol), 325 MG PO Q4 PRN for PAIN, (Reported) Acetaminophen With Codeine (Tylenol With Codeine #3 Tablet), 1 TAB PO Q6 PRN for PAIN 5 - 7, (Reported) Course Blood Pressure Systolic: 136 Blood Pressure Diastolic: 72 Blood Pressure Mean: 93 Assessment/Plan Assessment/Plan Assessment/Plan 82 yo female who has declined in function - will reassess tomorrow - will need to talk to family about the possibility of hospice care if she does not perk up Problems: Patient History: DON SHAY MD Dec 28, 2017 16:46
[2017-12-28 20:00] VITALS: BP 107/60
--- NOTE | 2017-12-28 21:13 | NUR ---
Assessment Dr. Zazueta notified of pt's status and ordered received to hold medication tonight.Medicatin zyprexa held .will cont to monitor pt.
--- NOTE | 2017-12-29 03:10 | NUR ---
PIRP- P- RISK FOR FALLS, DTO AND BEHAVIORAL DISTURBANCE. I- PROVIDE SAFE AND SUPPORTIVE ENVIRONMENT, Q 15 MIN. MONITORING, Q 15 MIN. MONITORING. R- DR. SCHWAB WAS NOTIFIED OF PT.'S STATUS AND ORDER RECEIVED TO HOLD ZYPREXA TONIGHT. PT. SAT IN CHAIR WITH EYES CLOSED AT TIMES IN GROUP BUT DID NOT PARTICIPATE OR ANSWER QUESTIONS DUE TO COGNITIVE IMPAIRMENT. ATE NO SNACK.FOLLOWING GROUP PT. WAS ASSISTED WITH HS CARE AND TO BED. PT. YELLED LOUDLY WHEN HS CARE WAS PROVIDED. PT. HAS BEEN TURNED AND REPOSITIONED Q 2 HOURS FOR COMFORT. PT. O2 SAT AT 0020 WA 90% ON RA. P- WILL CONTINUE WITH CURRENT TX. PLAN.
--- NOTE | 2017-12-29 04:15 | NUR ---
02 SAT AT 0400 PT. WAS TURNED AND REPOSITIONED FOR COMFORT. 02 SAT TAKEN WHICH WAS 84 % ON RA. 02 AT 2L/MIN. PER NC WAS APPLIED AND PT.'S 02 SAT WAS 92% WHEN RETAKEN 2 MIN. LATER. WILL CONTINUE TO MONITOR PT.'S STATUS.
[2017-12-29 07:30] VITALS: BP 118/53
[2017-12-29] MEDS: CLARITIN PO SCH (09:25)
[2017-12-29] MEDS: ZOLOFT PO SCH (09:25)
[2017-12-29] MEDS: ZYPREXA ZYDIS SL SCH ×2 (09:25→20:14)
--- NOTE | 2017-12-29 17:39 | NUR ---
PIRP: P: DTO. ALTERATION IN THOUGHT PROCESS. FALL RISK. I: Provide medication as ordered by physician. Encourage attendance and participation of all groups. Provide groups that require focus and concentration. Provide nonskid socks for prevention of falls and assist patient in transfers. Provide calm environment. R: Patient has taken all medications as ordered and has been alert with increased level of energy compared to yesterday. She has attended most groups and has enjoyed music. She has eaten and drank well today. She continues to yell out and resist personal care from staff. She is unable to make needs known verbally d/t word salad. Patient's sister is considering Hospice and has requested that social worker school call her on Sunday. A note has been left in door pocket for social worker school. P: Continue current plan of care.
--- NOTE | 2017-12-29 18:04 | NUR ---
Notified Custodial: Notified Custodial for a copy of the DNR. Custodial is going to fax it to the unit.
[2017-12-29 19:49] VITALS: BP 101/53
--- NOTE | 2017-12-30 03:52 | NUR ---
PIRP- P- DTO,RISK FOR FALLS AND ALTERED THOUGHT PROCESS I- PROVIDE SAFE AND SUPPORTIVE ENVIRONMENT,Q 15 MIN. MONITORING, PROVIDE MEDICATION ORDERED AND GIVE CLEAR AND SIMPLE DIRECTIONS R- PT. WAS ALERT AND SAT IN CHAIR IN DAY ROOM FOR GROUP. REFUSED TO EAT A SNACK BUT DRANK 75CC OF DR. MONTEZ. DID NOT PARTICIPATE IN GROUP ACTIVITIES. TOOK MEDICATION ORDERED. PT. WAS ASSISTED TO BED AND HS CARE PROVIDED. PT. YELLED LOUDLY WITH HS CARE. REMAINS FALL RISK . WEARING YELLOW NON SKID SOCKS. P- WILL CONTINUE WITH CURRENT TX. PLAN.
[2017-12-30 07:18] VITALS: BP 99/53
[2017-12-30] MEDS: ZOLOFT PO SCH (08:27)
[2017-12-30] MEDS: ZYPREXA ZYDIS SL SCH ×2 (08:27→20:30)
[2017-12-30] MEDS: CLARITIN PO SCH (08:27)
[2017-12-30] MEDS ORDERED: LORA-447 PO (10:04)
[2017-12-30] MEDS ORDERED: [UNRECOGNIZED DRUG - CODE] PO (10:04)
[2017-12-30] MEDS ORDERED: SERT50TA PO (10:04)
[2017-12-30] MEDS ORDERED: OLAN5TAB5 SL (10:04)
--- NOTE | 2017-12-30 10:13 | PRM.PN ---
Mood: UP AND DOWN, VERY CONFUSED AND NOT ABLE TO ANSWER QUESTIONS Sleep: SLEEPING WELL AT NIGHT Appetite: EATING BETTER THIS WEEKEND. SHE WAS NOT EATING WELL AT THE END OF LAST WEEK Suidical thoughts: NONE REPORTED Homicidal thoughts: NONE REPORTED Recent stressors: STRESS OF MENTAL ILLNESS AND CONFUSION Family support: SISTERS Aggressive Behavior: GETS IRRITABLE WHEN STAFF HELPING HER WITH ADLS, NOT AGGRESSIVE OTHERWISE Ability to Perform ADL'sc: NEEDS FULL ASSISTANCE, SOMETIMES TWO STAFF Psychotic sympstoms: DELUSIONAL THINKING RELATED TO HER DEMENTIA, NO HALLUCINATIONS Manic Symptoms: NONE REPORTED Living situation: LIVES AT [facility] Illicit Drug usec: NONE REPORTED Alcoholo use: NONE REPORTED Tobacco use: NONE REPORTED Family,PT,Surgical,&Current HX: Anxity Symptoms: MODERATE ANXIETY LEVEL Anger/Irritablility: SOME ANGER AND IRRITABILITY THAT ARE MANAGEABLE Muscle Strength & Tone: WNL Gait & Station: Ataxic Appearance: Appears older, Casual attire, Underweight Attitude & Behaviour: Uncooperative, Poor eye contact, Psychomotor agitation Mood & Affect: Euthymic/appr/congruent, Iabile Orientation: Disoriented to person, Disoriented to place, Disoriented to time, Disoriented to situation Attention/Concentration: Poor attention, Poor concentration Speech: Impaired Judgement/Insight: Poor judgement, Poor insight Thought Process: Loose, Tangential Language: Lithuanian Thought content/Abnormal/Psych: Delusions Fund of Knowledge: Other Associations: GUIDO Memory (recent and remote): Recent memory repaired, Remote memory repaired Constitutional: None Neurological: Weakness Psychiatric: Depressed, Anxious, Psychosis [place] I: DELUSIONAL DISORDER, PSYCHOSIS, DEPRESSION, ANXIETY, DEMENTIA [place] II: DEFERRED [place] III: REFER TO PMH/MEDICAL CHART [place] IV: STRESS OF MENTAL ILLNESS [place] V: GAF=25 Assessment/Plan Assessment/Plan Assessment/Plan THE PATIENT WAS SEEN BY DR. SCHWAB VIA TELEMEDICINE EQUIPMENT (VSEE) ALONG WITH THE TREATMENT TEAM. THE PATIENT'S VITAL SIGNS WERE: TEMP.=98.3, PULSE=83, RESP.= 18, BP=99/53, O2 SAT WAS 92% ON RA. THE PATIENT SLEPT 8.25 HOURS LAST NIGHT. THE PATIENT HAS BEEN EATING BETTER THIS WEEKEND. THE PATIENT HAS BEEN DRINKING FLUIDS THIS WEEKEND. THE PATIENT SEEMED TO BE PHYSICALLY DECLINING AT THE END OF LAST WEEK. SHE HAS PERKED UP SOME THIS WEEKEND. THE PATIENT SEEMS TO BE A HOSPICE CANDIDATE. THE PATIENT WAS LIVING AT [facility] IN [place], [place]. THE PATIENT SCREAMS WHEN STAFF TRIES TO HELP HER WITH ADLS. THE PATIENT IS A FULL ASSIST WITH HER ADLS. THE PATIENT IS NOT OVERSEDATED FROM HER MEDICATIONS. THE PATIENT IS EXTREMELY CONFUSED. ASSESSMENT: DELUSIONAL DISORDER, PSYCHOSIS; MAJOR DEPRESSIVE DISORDER; GENERALIZED ANXIETY DISORDER; ALZHEIMER'S DEMENTIA WITH BEHAVIOR PROBLEMS. PLAN: 1) CONTINUE BEHAVIORAL HEALTH MANAGEMENT. CONSIDER DISCHARGING AT THE EARLY PART OF THIS WEEK TO HOSPICE CARE AT [facility]. 2) CONTINUE CURRENT MEDICATIONS. SHE IS NOT OVER-SEDATED FROM HER MEDICATIONS PER STAFF. SUPPORTIVE THERAPY GIVEN. THE PATIENT DENIES NOT VOICE SI OR HI. Problems: (1) Delusional disorder Status: Acute ICD Code: F22 - Delusional disorders SNOMED: 43615924 (2) Psychosis Status: Acute ICD Code: F29 - Unspecified psychosis not due to a substance or known physiological condition SNOMED: 39320791 (3) Dementia with behavioral disturbance Permanent Comment: Treat as per psych Last Edited By: Ramiro Juárez MD on Feb 21, 2017 20:07 Status: Acute ICD Code: F03.91 - Unspecified dementia with behavioral disturbance SNOMED: 7195237159853 Patient History: MAINE SCHWAB IV, MD Dec 30, 2017 10:13
--- NOTE | 2017-12-30 14:10 | NUR ---
NOTIFIED DR OTERO : Dr. Otero notified of need for DNR. Copy of out of hospital DNR is in chart.
--- NOTE | 2017-12-30 16:26 | NUR ---
PIRP: P: DTO. ALTERED MENTAL STATUS. FALL RISK. I: Provide medications as ordered by physician. Encourage attendance and participation of all groups. Provide groups that require focuss and concentration. Assist patient in differentiating between internal and external reality. Provide nonskid socks for prevention of falls. R: Patient took all medications this morning. She has not been able to actively participate d/t word salad and confusion. She is frail and has not wanted to eat of drink much today. She has been awake most of the day and has been alert. P: Continue current plan of care. Possible discharge on Sunday with Hospice referral.
[2017-12-30 19:25] VITALS: BP 92/55
--- NOTE | 2017-12-31 03:36 | NUR ---
pirp- p- altered thought process,dto,risk for falls I- PROVIDE MEDICATION ORDERED,PROVIDE SAFE AND SUPPORTIVE ENVIRONMENT,Q 15 MIN. MONITORING. R- PT. DID NOT ANSWER ASSESSMENT QUESTIONS. RAMBLED AND AT TIMES EXHIBITED WORD SALAD. TOOK MEDICATION ORDERED. CONFUSED. REMAINS FALL RISK AND WAS ASSISTED TO BED AND HS CARE PROVIDED. PT. YELLS LOUDLY WITH HS CARE. PT. BEEN REPOSITIONED Q 2 HOURS FOR COMFORT. PT. WEARING YELLOW NON-SKID SOCKS AND BED IN LOW POSITION. P- WILL CONTINUE WITH CURRENT TX. PLAN.
--- NOTE | 2017-12-31 08:48 | NUR ---
DISCHARGE: PT TO DC TODAY BACK TO [facility] ON HOSPICE. SW SPOKE TO GUARDIAN WHO VOICED UNDERSTANDING AND WOULD LIKE TO USE THE [facility] IN [place]. SW CONTACTED FACILITY, FACILITY STATES THEY WILL PROVIDE TRANSPORT AROUND [id number]. MARIO DSOUZA NOTIFIED. FACILITY REQUESTS REPORT TO BE GIVEN TO ERWIN AT [phone].
[2017-12-31] MEDS: ZOLOFT PO SCH (09:03)
[2017-12-31] MEDS: ZYPREXA ZYDIS SL SCH (09:03)
[2017-12-31] MEDS: CLARITIN PO SCH (09:03)
--- NOTE | 2017-12-31 10:51 | NUR ---
Wound Reddened area to coccyx covered with optifoam gentle border, using aseptic technique. Area approx nickel sized redness that is blanchable, no open areas noted.
[2017-12-31 11:15] VITALS: BP 114/53
--- NOTE | 2017-12-31 11:34 | NUR ---
Co-Signature For MT Assessment I, TAL Hudson am co-signing Music Therapy Activities Assessment with completion of this attached note. Signed: 12/31/17 at 1135 by TAL Hudson OT Addendum: 12/31/17 at 1135 by TAL Hudson OT Amended: Links added.
--- NOTE | 2017-12-31 11:36 | NUR ---
Wound pic Discharge wound pics obtained and placed in chart by Kiana English LVN.
[2017-12-31 13:05] VITALS: BP 114/53
--- NOTE | 2017-12-31 13:05 | NUR ---
Off unit Pt transported off unit via wheelchair alongside Jovany Gamez CNA and [facility] staff. No s/s of distress noted.
--- NOTE | 2017-12-31 13:43 | NUR ---
Report Report called and given to Beena Nickerson, DANNIE @ [facility] / [facility] @ [phone].
--- NOTE | 2017-12-31 20:45 | DSH ---
DATE OF DISCHARGE: 12/31/2017 HOSPITAL COURSE: The patient is an 82-year-old female with a history of delusional disorder, psychosis, major depression, generalized anxiety disorder, Alzheimer type dementia with behavior disturbance. The patient was an involuntary admission sent from the [facility] in [place], [place]. She was having aggressive and irritable behavior at the long term. She had been taken off her psychotropic medications. She was stabilized on the following psychotropic medications: Zyprexa Zydis 5 mg p.o. b.i.d., Zoloft 100 mg p.o. daily and lorazepam 0.5 mg p.o. q.6 hours p.r.n. anxiety. The patient responded well to her medications. She was sleeping and eating okay on discharge. She did have periods of not sleeping and eating well. She was physically declining and needs to be in hospice care. She does not eat and drink well all the time due to her end of life situation. She was not having any physical pain. She was not in distress. She does yell and scream at times. She does not yell and scream unless staff is trying to help her with ADLs. She is not aggressive or a threat to hurting others. She does not voice suicidal or homicidal ideation. She was extremely confused and not able to answer orientation questions. She does not appear to be having hallucinations. Her behavior was controlled and stable and she will be discharged to the [facility] on hospice care. DISCHARGE DIAGNOSES: Delusional disorder; psychosis; major depressive disorder; generalized anxiety disorder; Alzheimer type dementia with behavior disturbance. DISCHARGE PLAN: 1. The patient is being discharged to the [facility] on hospice care. 2. The patient will continue the above psychotropic medications at current doses. Daxa Zazueta IV MD DR: /robert JOB# [id number]
== END 2017-12-31 13:05 | disposition home or self-care (01) | DRG 57 ==
LOC: EEVIPCON → GP 18:36
PROVIDERS: ADMIT Psychiatry & Neurology Psychiatry; ATTEND Psychiatry & Neurology Psychiatry
DX: G30.9 Alzheimer's disease, unspecified (principal); F02.81 Dementia in other diseases classified elsewhere, unspecified severity, with behavioral disturbance; N18.9 Chronic kidney disease, unspecified; E44.0 Moderate protein-calorie malnutrition; F22 Delusional disorders; F32.9 Major depressive disorder, single episode, unspecified; F41.1 Generalized anxiety disorder; J30.2 Other seasonal allergic rhinitis; Z51.5 Encounter for palliative care; Z87.81 Personal history of (healed) traumatic fracture; Z79.899 Other long term (current) drug therapy
CPT/HCPCS: 36415; 71045; 80053; 80061; 83036; 85025; 97150; 97165; J3490; G8987; G8988